=== PATIENT | female | born 1970 | race Caucasian/White ===

== ENCOUNTER 2016-06-07 09:12 | Outpatient (CLI) | payer MEDICARE, OTHER ==
[2015-11-24 15:24] VITALS: BP 149/106
== END 2016-06-07 09:14 ==
LOC: POD 09:12
PROVIDERS: ATTEND Podiatrist Public Medicine
DX: L84 Corns and callosities (principal); M79.671 Pain in right foot; M79.672 Pain in left foot
CPT/HCPCS: G0463

== ENCOUNTER 2016-07-05 12:22 | Outpatient (CLI) | payer MEDICARE, OTHER ==
[2015-11-24 15:24] VITALS: BP 149/106
[2016-07-05 12:38] LABS: BASOPHILS % 0.3 (0.0-1.5); EOSINOPHILS % 1.2 % (0.0-6.8); LYMPHOCYTES # 2.8 # k/uL (0.6-4.0); MEAN CORPUSCULAR HEMOGLOBIN 31.3 pg (28.0-34.0); MONOCYTES # 0.6 # k/uL (0.0-0.9); MONOCYTES % 4.7 % (0.0-11.0); NEUTROPHILS # 8.9 # k/uL (1.4-7.7)
[2016-07-05 13:05] LABS: eGFR (African) > 60; eGFR (Non-African) > 60
== END 2016-07-05 12:23 ==
LOC: LAB 12:22
PROVIDERS: ATTEND Physician Assistant
DX: R42 Dizziness and giddiness (principal); R53.82 Chronic fatigue, unspecified
CPT/HCPCS: 36415; 80053; 85025

== ENCOUNTER 2016-11-02 12:39 | Emergency (ER) | payer MEDICARE, OTHER ==
[2016-11-02 14:50] VITALS: BP 134/83
--- NOTE | 2016-11-02 15:26 | ED Physician Documentation ---
Hip Injury/Pain - HISTORIAN Historian: patient, paramedics - HPI Stated Complaint: right hip pain Chief Complaint: Hip Pain Additional Information: standing in kitchen severe exab rt hip pain-near fell. pain recent using aspercream takes tylenol- pt concerned fracture-sig obesity Onset: days ago (1-2 weeks light pain suddenly worse) Where: home Severity: moderate Duration: worse, persistent since Context: fall (near). denies: lost balance Symptoms Prior to Fall: other (progressive rt hip pain) Other Injuries: denies: loss of consciousness Subsequent Symptoms: weakness. denies: sensory loss, motor loss, numbness - ROS CONST: no problems RESP: denies: shortness of breath, cough non-productive GI/: none EYES/ENT: none MS/SKIN/LYMPH: denies: neck pain, ankle swelling NEURO/PSYCH: anxiety, depression. denies: confusion - PAST HX Cardiac Disease: other PE Risk Factors: hypertension Allergies/Adverse Reactions: Allergies Allergy/AdvReac Type Severity Reaction Status Date / Time No Known Allergies Allergy Verified 11/02/16 12:55 Home Medications: Ambulatory Orders Medication Instructions Recorded Ziprasidone HCl [Geodon] 80 mg PO BID av 12/25/14 Trazodone HCl [Desyrel] 100 mg PO HS u2 01/11/15 Aripiprazole [Abilify] 5 mg PO DAILY u2 01/14/16 - SOCIAL HX Smoking History: non-smoker Alcohol Use: none Drug Use: none - FAMILY HX Family History: No - VITAL SIGNS Vital Signs: Vital Signs Temp Pulse Resp BP Pulse Ox 98.0 F 102 H 20 134/83 98 11/02/16 12:40 11/02/16 12:40 11/02/16 12:40 11/02/16 12:40 11/02/16 12:40 - REVIEWED ASSESSMENTS Nursing Assessment Reviewed: Yes Vitals Reviewed: Yes ED Results Lab/Radiology - Orders Orders: ED Orders Category Date Time Status CT PELVIS W/O CONTRAST Routine Exams 11/02/[address] PELVIS W/O CONTRAST Stat Exams 11/02/16 Ordered Hip Injury/Pain Physical Exam - EXAM General Appearance: moderate distress Extremities: no deformity of knee, external rotation of leg (? slight). No: non -tender (sig tenderness over acetabulum rt hip), shortening of leg EENT: eye inspection normal Neck: nml inspection Respiratory: chest non-tender, breath sounds nml CVS: reg rate & rhythm, heart sounds normal Abdomen: non-tender (obese) Back: CVA tenderness (batsheva lumbar) Skin: warm/dry, normal color. No: cyanosis, diaphoresis, jaundice Neuro/Psych: oriented x3, mood/affect nml. No: sensory loss, depressed mood Discharge Clincal Impression: djd acetabulum - low back Referrals: Deepak Mcclure MD [Primary Care Provider] - 2 Days Home Medications: Ambulatory Orders Ziprasidone HCl [Geodon] 80 mg PO BID av 12/25/14 Trazodone HCl [Desyrel] 100 mg PO HS u2 01/11/15 Aripiprazole [Abilify] 5 mg PO DAILY u2 01/14/16 Comments: home tylenol-cant take ibu- hmp use cane or crutch - see pcp soon Condition: Good Disposition: 01 HOME, SELF-CARE Decision to Admit: NO Decision Time: 15:25
--- NOTE | 2016-11-02 15:50 | Diagnostic Imaging Report ---
NATE MCKEE [facility] [address] [facility] [address] [place], [place]. [address] Report Submission Date: Nov 02, 2016 2:17:12 PM CDT Patient Study Name: HAVEN PITTMAN Date: Nov 02, 2016 1:40:55 PM CDT Modality Type: CT\SR Gender: F Description: CT PELVIS W/O CONTRAST : 66 Institution: [facility] Physician: NATE MCKEE Examination: CT pelvis/hips History: Hip discomfort Comparison exam: Plain film dated 13 March 2016 Technique: Axial imaging with sagittal coronal reconstruction Findings: Osseous cortical margins without evidence for fracture. Minimal superior acetabular spurring bilaterally. Femoral head, neck, and intratrochanteric regions are within normal limits. Joint space preserved. Superior and inferior pubic rami, pubic symphysis, and iliac wings are within normal limits. Sacroiliac joints without fusion or fracture. Lower lumbar degenerative changes. No gross soft tissue abnormality given technique. Impression: Mild acetabular spurring. No acute osseous process. Lower lumbar degenerative changes. Electronically signed on Nov 02, 2016 2:17:12 PM CDT by: Logan BANEGAS
== END 2016-11-02 15:36 | disposition home or self-care (01) ==
LOC: ED 12:39
DX: M16.11 Unilateral primary osteoarthritis, right hip (principal)
CPT/HCPCS: 72192; 99283

== ENCOUNTER 2016-11-08 11:01 | Outpatient (CLI) | payer MEDICARE, OTHER | END 2016-11-08 11:02 | LOC: POD 11:01 | PROVIDERS: ATTEND Podiatrist Public Medicine | DX: L84 Corns and callosities (principal); L60.0 Ingrowing nail; M79.671 Pain in right foot; M79.672 Pain in left foot | CPT/HCPCS: G0463 ==

== ENCOUNTER 2017-02-07 10:15 | Outpatient (CLI) | payer MEDICARE, OTHER | END 2017-02-07 10:16 | LOC: POD 10:15 | PROVIDERS: ATTEND Podiatrist Public Medicine | DX: L84 Corns and callosities (principal); L60.0 Ingrowing nail; M79.671 Pain in right foot; M79.672 Pain in left foot | CPT/HCPCS: G0463 ==

== ENCOUNTER 2017-05-09 09:35 | Outpatient (CLI) | payer MEDICARE, OTHER | END 2017-05-09 11:15 | LOC: POD 09:35 | PROVIDERS: ATTEND Podiatrist Public Medicine | DX: L84 Corns and callosities (principal); L60.0 Ingrowing nail; M79.671 Pain in right foot; M79.672 Pain in left foot | CPT/HCPCS: G0463 ==

== ENCOUNTER 2017-08-08 09:11 | Outpatient (CLI) | payer MEDICARE, OTHER | END 2017-08-08 09:51 | LOC: POD 09:11 | PROVIDERS: ATTEND Podiatrist Public Medicine | DX: L84 Corns and callosities (principal); L60.0 Ingrowing nail; M79.671 Pain in right foot; M79.672 Pain in left foot; B35.1 Tinea unguium | CPT/HCPCS: 11721; G0463 ==

== ENCOUNTER 2017-09-10 16:14 | Outpatient (CLI) | payer MEDICARE, OTHER ==
[2017-09-10 17:07] LABS: MEAN CORPUSCULAR HEMOGLOBIN 29.7 pg (28.0-34.0); MEAN CORPUSCULAR VOLUME 85.3 fl (80.0-100.0)
[2017-09-10 17:08] LABS: APPEARANCE,URINE Clear (CLEAR); COLOR,URINE Yellow (YELLOW); OCCULT BLOOD,URINE 1+ (NEGATIVE); UROBILINOGEN URINE 0.2 Eu (0.2-1.0)
[2017-09-10 17:16] LABS: eGFR (African) > 60; eGFR (Non-African) > 60
== END 2017-09-10 16:15 ==
LOC: LAB 16:14
PROVIDERS: ATTEND Family Medicine
DX: R00.0 Tachycardia, unspecified (principal); N39.0 Urinary tract infection, site not specified; Z51.81 Encounter for therapeutic drug level monitoring
CPT/HCPCS: 36415; 80053; 81002; 85027

== ENCOUNTER 2017-11-07 08:36 | Outpatient (CLI) | payer MEDICARE, OTHER | END 2017-11-07 08:38 | LOC: POD 08:36 | PROVIDERS: ATTEND Podiatrist Public Medicine | DX: B35.1 Tinea unguium (principal); L84 Corns and callosities; L60.0 Ingrowing nail; M79.671 Pain in right foot; M79.672 Pain in left foot | CPT/HCPCS: G0463 ==

== ENCOUNTER 2017-11-13 16:42 | Outpatient (CLI) | payer MEDICARE, OTHER | END 2017-11-13 16:44 | LOC: LABRHC 16:42 | PROVIDERS: ATTEND Physician Assistant | DX: R35.0 Frequency of micturition (principal) | CPT/HCPCS: 87086 ==

== ENCOUNTER 2018-03-05 16:25 | Inpatient (IN) | payer MEDICARE, OTHER ==
[2018-03-05] MEDS ORDERED: 0.9 % SODIUM CHLORIDE 1,000 ML IV ONE (16:39)
[2018-03-05] MEDS ORDERED: ONDANSETRON HCL/PF 4 MG/ 2ML VIAL IVP ONE (16:41)
--- NOTE | 2018-03-05 16:57 | ED Physician Documentation ---
Nausea/Vomiting/Diarrhea - HPI Stated Complaint: N/V/D Chief Complaint: Abdominal Pain Additional Information: Patient presents to ED from clinic with sudden onset of vomiting. She reports watery diarrhea since this morning with 8-10 stools today. Patient has been us ing laxatives for the past 6 weeks twice daily for constipation. She was under the impression she was supposed to take laxatives twice daily but was only supposed to take them once daily. She started taking laxative once daily about a week ago. She did not take a laxative yesterday or today. She denies fever, chills or blood in stools/vomit. Onset: hours (12) Duration: waxing, waning Last known Well Code/Unknown Code: Known (yesterday) Timing: sudden onset Context: other (sick contact with diarrhea several days ago). denies: out of country travel Severity: mild Further Comments: no - Associated Symptoms Vomiting: mild Diarrhea: watery Abdominal Pain: aching, epigastric, RUQ - ROS CONST: none CVS/RESP: denies: chest pain, shortness of breath, cough GI/: none EYES/ENT: none MS/SKIN/LYMPH: denies: rash - PAST HX Past History: none Surgeries/Procedures: cholecystectomy Allergies/Adverse Reactions: Allergies Allergy/AdvReac Type Severity Reaction Status Date / Time diclofenac Allergy rash Verified 03/05/18 16:44 Home Medications: Ambulatory Orders Medication Instructions Recorded Ziprasidone HCl [Geodon] 80 mg PO BID av 12/25/14 Trazodone HCl [Desyrel] 100 mg PO HS u2 01/11/15 Aripiprazole [Abilify] 5 mg PO DAILY u2 01/14/16 - SOCIAL HX Smoking History: non-smoker Alcohol Use: none Drug Use: none - FAMILY HX Family History: none - VITAL SIGNS Vital Signs: Vital Signs Temp Pulse Resp BP Pulse Ox 95.2 F L 106 H 15 107/89 98 03/05/18 16:25 03/05/18 16:25 03/05/18 16:25 03/05/18 16:25 03/05/18 16:25 - REVIEWED ASSESSMENTS Nursing Assessment Reviewed: Yes Vitals Reviewed: Yes Progress - Results/Orders Results/Orders: CT abdomen and pelvis with contrast Date of study: March 05, 2018. CLINICAL HISTORY: EPIGASTRIC PAIN (Hx) / ITS.REASON n/v/d epigastric pain, elevated lipase TECHNIQUE: 5 mm contiguous axial images of the abdomen and pelvis with IV contrast. With; 91 CC OMNIPAQUE FINDINGS: No comparison studies are provided. The lung bases are clear. Abdomen: A right hepatic lobe hypodensity measures 1.3 cm and 20 Hounsfield units most consistent with a cyst. The intrahepatic bile ducts are slightly prominent most consistent with a post cholecystectomy effect. The pancreas and spleen are normal in appearance. Surgical clips are present in the gallbladder fossa consistent with prior cholecystectomy. The kidneys enhance appropriately and symmetrically. The aorta is normal in caliber. The small bowel is nondistended. There is no evidence of free air or free fluid. Pelvis: The colon is mildly dilated with air fluid levels throughout that may represent an enteritis or ileus. The appendix is not identified. Surgical clips are noted in the right pelvis. The distal ureters and bladder are normal. A right ovarian cyst or follicle measures a 2 cm. There is no evidence of free air or free fluid. The sigmoid colon and rectum are normal. The remaining pelvic structures are within normal limits and the bones of the pelvis are intact. There is multilevel degenerative lumbar spondylosis. IMPRESSION: Dilated colon with air-fluid levels that may represent an ileus or enteritis. Right hepatic lobe hypodensity that appears most consistent with a small cyst. 2 cm right ovarian cyst or follicle. Electronically signed on Mar 05, 2018 7:13:15 PM CDT by: Mahnaz Plaza - Progress Progress: 1804 Patient resting comfortably, feeling better after IV and Zofran. No stools yet. 183 Watery BM 1937 Elevated Lipase 511, CT abd/pelvis reveals enteritis vs ileus. UA shows infection. WBC >22,000. We will admit. ED Results Lab/Radiology - Lab Results Lab Results: Lab Results 03/05/18 03/05/18 03/05/18 17:00 17:00 17:00 WBC Comment 22.76 thou/uL H thou/uL (4.00-12.00) RBC 5.20 mil/uL mil/uL (3.90-5.20) Hemoglobin (Send Out) 14.8 g/dL g/dL (11.5-16.0) Hct (Send Out) 44.1 % % (34.5-46.5) MCV (Send Out) 84.8 fL fL (80.0-100.0) MCH 28.5 pg pg (28.0-34.0) MCHC (Send Out) 33.6 g/dL g/dL (30.0-36.0) RDW Coeff of Mia 12.6 % % (11.3-14.7) Plt Count 459 thou/uL H thou/uL (130-400) Absolute Lymphs (auto) 1.59 thou/uL thou/uL (0.60-4.00) Absolute Monos (auto) 0.84 thou/uL thou/uL (0.00-0.90) Absolute Basos (auto) 0.02 thou/uL thou/uL (0.00-0.50) Neutrophils % 88.9 % H % (39.0-79.0) Absolute Neutrophils 20.23 thou/uL H thou/uL (1.50-7.70) Lymphocytes 7.0 % L % (16.0-50.0) Monocytes 3.7 % % (0.0-11.0) Absolute Eosinophils 0.05 thou/uL thou/uL (0.00-0.60) Basophilia % 0.1 % % (0.0-1.5) Eosinophil Count 0.2 % % (0.0-6.8) Sodium Potassium Chloride Carbon Dioxide BUN Creatinine Estimated Creat Clear Est GFR ( Amer) Est GFR (Non-Af Amer) Glucose Calcium Total Bilirubin AST ALT Alkaline Phosphatase Total Protein Albumin Lipase 511 U/L H U/L (23-300) Urine Color Petra (YELLOW) Urine Appearance Cloudy H (CLEAR) Urine pH 5.5 (5.0 - 8.0) Ur Specific [place] 1.015 (1.010-1.030) Urine Protein 1+ mg/dL H mg/dL (NEGATIVE) Urine Ketones Negative mg/dL mg/dL (NEGATIVE) Urine Occult Blood 3+ H (NEGATIVE) Urine Nitrite Negative (NEGATIVE) Urine Bilirubin Negative (NEGATIVE) Urine Urobilinogen 0.2 Eu Eu (0.2-1.0) Ur Leukocyte Esterase 1+ H (NEGATIVE) Urine Glucose Negative mg/dL mg/dL (NEGATIVE) Urine HCG, Qual Negative (NEGATIVE) 03/05/18 17:00 WBC Comment RBC Hemoglobin (Send Out) Hct (Send Out) MCV (Send Out) MCH MCHC (Send Out) RDW Coeff of Mia Plt Count Absolute Lymphs (auto) Absolute Monos (auto) Absolute Basos (auto) Neutrophils % Absolute Neutrophils Lymphocytes Monocytes Absolute Eosinophils Basophilia % Eosinophil Count Sodium 130 mmol/L L mmol/L (136-145) Potassium 3.7 mmol/L mmol/L (3.5-5.1) Chloride 91 mmol/L L mmol/L (98-107) Carbon Dioxide 29 mmol/L mmol/L (22-30) BUN 13 mg/dL mg/dL (7-17) Creatinine 0.80 mg/dL mg/dL (0.52-1.04) Estimated Creat Clear 180 Est GFR ( Amer) > 60 (60 - ) Est GFR (Non-Af Amer) > 60 (60 - ) Glucose 120 mg/dL H mg/dL (74-106) Calcium 9.2 mg/dL mg/dL (8.4-10.2) Total Bilirubin 0.3 mg/dL mg/dL (0.2-1.3) AST 36 U/L U/L (15-46) ALT 47 U/L U/L (13-69) Alkaline Phosphatase 110 U/L U/L (38-126) Total Protein 7.9 g/dL g/dL (6.3-8.2) Albumin 4.2 g/dL g/dL (3.5-5.0) Lipase Urine Color Urine Appearance Urine pH Ur Specific [place] Urine Protein Urine Ketones Urine Occult Blood Urine Nitrite Urine Bilirubin Urine Urobilinogen Ur Leukocyte Esterase Urine Glucose Urine HCG, Qual - Orders Orders: ED Orders Category Date Time Status Place IV Lock 1T Care 03/05/18 16:[address] ABD & PELVIS W/ CON Stat Exams 03/05/18 Taken BLOOD CULTURE Stat Lab 03/05/18 Ordered CBC REF Stat Lab 03/05/18 17:00 Completed CMP Routine Lab 03/05/18 17:00 Completed LIPASE Stat Lab 03/05/18 17:00 Completed LIPID PROFILE Stat Lab 03/05/18 Ordered UA MACRO DIP ONLY Stat Lab 03/05/18 17:00 Completed URINE CULTURE Stat Lab 03/05/18 17:00 Received URINE HCG Stat Lab 03/05/18 17:00 Completed 0.9 % Sodium Chloride [Normal Saline] 1,000 ml Med 03/05/18 16:39 Discontinued IV Q2H Ondansetron HCl/Pf [Zofran 4 mg/2 ml] Med 03/05/18 16:41 Discontinued 4 mg IVP NOW ONE Piperacillin Sodium/Tazobactam [Zosyn] Med 03/06/18 19:31 Once 3.375 gm IV NOW ONE Nausea Physical Exam - EXAM General Appearance: no acute distress, alert EENT: SHARIF Neck: supple Respiratory: no resp distress, breath sounds normal CVS: reg rate & rhythm Abdomen: tenderness (soft, RUQ/epigastric tenderness) Back: No: CVA tenderness Skin: warm/dry, normal color Extremities: non-tender, no edema Neuro/Psych: oriented X3 Discharge Clincal Impression: Hyponatremia, Neutrophilic leukocytosis, Acute gastroenteritis, Adynamic ileus Acute pancreatitis without infection or necrosis Qualifiers: Pancreatitis type: unspecified pancreatitis type Qualified Code(s): K85.90 - Acute pancreatitis without necrosis or infection, unspecified Urinary tract infection Qualifiers: Urinary tract infection type: acute cystitis Hematuria presence: with hematuria Qualified Code(s): N30.01 - Acute cystitis with hematuria Referrals: Deepak Mcclure MD [Primary Care Provider] - 2 Days Condition: Stable Disposition: ADMITTED INPATIENT Decision to Admit: [id number] Date of Decison to Admit: 03/05/18 Decision Time: 19:23
[2018-03-05 18:04] LABS: APPEARANCE,URINE CLOUDY (CLEAR); COLOR,URINE AMBER (YELLOW); OCCULT BLOOD,URINE 3+ (NEGATIVE); PH URINE 5.5 (5.0 - 8.0); URINE HCG NEGATIVE (NEGATIVE); UROBILINOGEN URINE 0.2 Eu (0.2-1.0)
[2018-03-05 18:06] LABS: eGFR (Non-African) > 60
[2018-03-05 19:02] LABS: BASO % 0.1 % (0.0-1.5); EOS % 0.2 % (0.0-6.8); LYMPH ABS # 1.59 thou/uL (0.60-4.00); MCH. 28.5 pg (28.0-34.0); MCV 84.8 fL (80.0-100.0); MONOCYTE % 3.7 % (0.0-11.0); MONOCYTE ABS # 0.84 thou/uL (0.00-0.90); PLATELET COUNT 459 thou/uL (130-400)
[2018-03-05] MEDS ORDERED: HYDRALAZINE HCL 25 MG TABLET PO PRN (20:33)
--- NOTE | 2018-03-05 20:39 | History and Physical Report ---
History of Present Illnes - History of Present Illness Reason for Visit: nausea/vomiting/diarrhea History of Present Illness: Patient presents to ED from clinic with sudden onset of vomiting. She reports watery diarrhea since this morning with 8-10 stools today. Patient has been using laxatives for the past 6 weeks twice daily for constipation. She was under the impression she was supposed to take laxatives twice daily but was only supposed to take them once daily. She started taking laxative once daily about a week ago. She did not take a laxative yesterday or today. She denies fever, chills or blood in stools/vomit. ED evaluation revealed elevated WBC >22,000, Lipase 511, Na+ 130, UA showing infection. CT abd/pelvis revealed enteritis vs ileus. Blood cultures were drawn in the ED. One dose Zosyn given. Patient was admitted. - Past Medical History Cardiac: denies: AFIB, CAD, CHF, HTN, [place], Syncope, Hyperlipidemia, Mitral valve stenosis, Aortic stenosis, Valve insufficiency, Pulmonary hypertension, Other Pulmonary: denies: Asthma, Bronchitis, COPD, Pulmonary embolus, Previously intubated, Pneumonia, Sleep Apnea, Other Hepatobiliary: denies: Cirrhosis, Cholelithiasis, Hep A/B/C, Other Psych: Bipolar Musculoskeletal: denies: Chronic low back pain, Bursitis, Osteoarthritis, Other Rheumatologic: denies: Fibromyalgia, Gout, Rheumatoid arthritis, Vasculitis, Other Infectious Disease: denies: Bacterial vaginosis, [place], Gonorrhea, HIV, Human papilloma virus, Herpes simplex 1, Herpes simplex 2, Herpes zoster, Other Renal/: denies: Chronic renal insuff, Acute renal failure, Chronic renal failure, UTI, Hematuria, Other Endocrine: denies: Diabetes, Hyperthyroidism, Hypothyroidism, Hyperparathyroidism, Osteopenia, Osteoporosis, Other Dermatology: denies: Eczema, Cellulitis, Psoriasis, Melanoma, Basal cell, Squamous cell, Other - Past Surgical History Past Surgical History: Cholecystectomy - Past Social History Smoke: No Alcohol: None Drugs: None Lives: With Family Domestic Violence: Negative - Health Maintenance Health Maintenance: Cholesterol Pneumonia Vaccine: No Resuscitation Status: Resusciation Status Resuscitation Status Full Code Review of Systems - Review of Systems Constitutional: negative: Fever, Chills Eyes: negative: pain ENT: negative: Throat Pain, Throat Swelling Respiratory: negative: Cough, Shortness of Breath Cardiovascular: negative: Chest Pain Gastrointestinal: Nausea, Vomiting, Abdominal Pain, Diarrhea, Constipation. negative: Melena, Hematochezia Genitourinary: negative: Dysuria, Frequency Musculoskeletal: negative: Neck Pain Skin: negative: Rash Neurological: negative: Weakness, Seizures - Medications/Allergies Allergies/Adverse Reactions: Allergies Allergy/AdvReac Type Severity Reaction Status Date / Time diclofenac Allergy rash Verified 03/05/18 16:44 Current Inpatient Medications: Current Inpatient Medications Enoxaparin Sodium (Lovenox) 30 mg SQ QD [facility] Stop: 03/18/18 21:01 Fluticasone Propionate (Flonase Nasal [place]) spray NS DAILY [facility] Hydralazine HCl (Apresoline) 25 mg PO TID PRN PRN Reason: Blood Pressure Sodium Chloride (Normal Saline) 1,000 mls @ 100 mls/hr IV Q10H D[facility]IN Nystatin (Nystop) appl TP BID [facility] Stop: 03/15/18 20:59 Pantoprazole Sodium (Protonix) 40 mg PO BID [place]IN Piperacillin Sod/Tazobactam Sod (Zosyn) 3.375 gm IV NOW ONE Stop: 03/06/18 19:32 Piperacillin Sod/Tazobactam Sod (Zosyn) 3.375 gm IV Q6 [facility] Trazodone HCl (Desyrel) 50 mg PO HS [facility] Exam - Exam Vital Signs: Vital Signs (72 hours) 03/05/18 16:25 Temperature 95.2 F L Pulse Rate [ 106 H Left Pulse ox] Respiratory 15 Rate Blood Pressure 107/89 Blood Pressure 107/89 [Right Arm] O2 Sat by Pulse 98 Oximetry General: Alert, Oriented to Person, Oriented to Place, Oriented to Time, Coop erative, No acute distress HEENT: Atraumatic, PERRLA Neck: Normal Range of Motion Lungs: Clear to auscultation Cardiovascular: Regular rate Murmur: No: Systolic Murmur, Diastolic Murmur Abdomen: Soft, Other (epigastric/RUQ tenderness) Integumentary: Normal, [place], Warm Extremities: No clubbing, No edema Neurological: Normal gait, Normal speech Psych/Mental Status: Mental status NL - Laboratory Results Laboratory Results: Laboratory Results 03/05/18 03/05/18 03/05/18 17:00 17:00 17:00 WBC Comment 22.76 H RBC 5.20 Hemoglobin (Send Out) 14.8 Hct (Send Out) 44.1 MCV (Send Out) 84.8 MCH 28.5 MCHC (Send Out) 33.6 RDW Coeff of Mia 12.6 Plt Count 459 H Absolute Lymphs (auto) 1.59 Absolute Monos (auto) 0.84 Absolute Basos (auto) 0.02 Neutrophils % 88.9 H Absolute Neutrophils 20.23 H Lymphocytes 7.0 L Monocytes 3.7 Absolute Eosinophils 0.05 Basophilia % 0.1 Eosinophil Count 0.2 Sodium 130 L Potassium 3.7 Chloride 91 L Carbon Dioxide 29 BUN 13 Creatinine 0.80 Estimated Creat Clear 180 Est GFR ( Amer) > 60 Est GFR (Non-Af Amer) > 60 Glucose 120 H Calcium 9.2 Total Bilirubin 0.3 AST 36 ALT 47 Alkaline Phosphatase 110 Total Protein 7.9 Albumin 4.2 Lipase 511 H Urine Color Urine Appearance Urine pH Ur Specific [place] Urine Protein Urine Ketones Urine Occult Blood Urine Nitrite Urine Bilirubin Urine Urobilinogen Ur Leukocyte Esterase Urine Glucose Urine HCG, Qual 03/05/18 17:00 WBC Comment RBC Hemoglobin (Send Out) Hct (Send Out) MCV (Send Out) MCH MCHC (Send Out) RDW Coeff of Mia Plt Count Absolute Lymphs (auto) Absolute Monos (auto) Absolute Basos (auto) Neutrophils % Absolute Neutrophils Lymphocytes Monocytes Absolute Eosinophils Basophilia % Eosinophil Count Sodium Potassium Chloride Carbon Dioxide BUN Creatinine Estimated Creat Clear Est GFR ( Amer) Est GFR (Non-Af Amer) Glucose Calcium Total Bilirubin AST ALT Alkaline Phosphatase Total Protein Albumin Lipase Urine Color Petra Urine Appearance Cloudy H Urine pH 5.5 Ur Specific [place] 1.015 Urine Protein 1+ H Urine Ketones Negative Urine Occult Blood 3+ H Urine Nitrite Negative Urine Bilirubin Negative Urine Urobilinogen 0.2 Ur Leukocyte Esterase 1+ H Urine Glucose Negative Urine HCG, Qual Negative Assessment/Plan - Assessment/Plan (1) Acute gastroenteritis Status: Acute Current Visit: Yes Plan: Start Zosyn q 6 hours (2) Acute pancreatitis without infection or necrosis Status: Acute Current Visit: Yes Qualifiers: Pancreatitis type: unspecified pancreatitis type Qualified Code(s): K85.90 - Acute pancreatitis without necrosis or infection, unspecified Plan: Check lipid panel, triglycerides Hold Ablifiy as it may cause pancreatitis NPO with ice chips Protonix IV Pain control Hold blood pressure meds for soft blood pressure Add Hydralazine PRN for blood pressure >160 systolic (3) Adynamic ileus Status: Acute Current Visit: Yes Plan: NPO with ice chips Repeat KUB in AM (4) Hyponatremia Status: Acute Current Visit: Yes Plan: Normal saline at 100ml/hr Monitor Na+ (5) Neutrophilic leukocytosis Status: Acute Current Visit: Yes Plan: Zosyn Monitor WBC count (6) Urinary tract infection Status: Acute Current Visit: Yes Qualifiers: Urinary tract infection type: acute cystitis Hematuria presence: with hematuria Qualified Code(s): N30.01 - Acute cystitis with hematuria Plan: Zosyn q 6 hours. Watch urine/blood cultures. VTE Assessment - RISK FACTOR SCORE VTE RISK FACTOR SCORES: AGE 40-60 YEARS, OBESITY - RISK VTE HIGH RISK: SCORE OF 3-4 (RISK PROXIMAL DVT 4-8%) PROPHYLAXIS NEEDED (lovenox)
[2018-03-05] MEDS ORDERED: PANTOPRAZOLE SODIUM 40 MG TABLET PO SCH (21:00)
[2018-03-05] MEDS ORDERED: ONDANSETRON HCL/PF 4 MG/ 2ML VIAL IVP PRN (21:01)
[2018-03-05] MEDS ORDERED: 0.9 % SODIUM CHLORIDE 100 ML IV ONE (22:24)
[2018-03-05] MEDS: traZODone HCL 50 MG TABLET PO SCH (23:03)
[2018-03-05] MEDS: ENOXAPARIN SODIUM 30 MG/0.3 ML DISP.SYRIN SQ SCH (23:03)
[2018-03-05] MEDS: 0.9 % SODIUM CHLORIDE 1,000 ML IV SCH (23:04)
[2018-03-05] MEDS: PIPERACILLIN SODIUM/TAZOBACTAM 3.375 GM VIAL IV SCH (23:05)
[2018-03-05] MEDS: fentaNYL CITRATE/PF 100 MCG/ 2ML AMP IVP PRN (23:10)
[2018-03-06 01:37] VITALS: BMI 44.2
[2018-03-06] MEDS: fentaNYL CITRATE/PF 100 MCG/ 2ML AMP IVP PRN ×2 (04:08→13:55)
[2018-03-06] MEDS: PIPERACILLIN SODIUM/TAZOBACTAM 3.375 GM VIAL IV SCH ×3 (05:45→17:13)
--- NOTE | 2018-03-06 06:43 | Diagnostic Imaging Report ---
MAGDALENA MONSON [facility] [address] [facility] [address] [place], [place]. [address] Report Submission Date: Mar 05, 2018 7:13:15 PM CDT Patient Study Name: HAVEN PITTMAN Date: Mar 05, 2018 6:33:35 PM CDT Modality Type: CT\SR Gender: F Description: CT ABD PELVIS W/ CON : 66 Institution: [facility] Physician: MAGDALENA MONSON CT abdomen and pelvis with contrast Date of study: March 05, 2018. CLINICAL HISTORY: EPIGASTRIC PAIN (Hx) / ITS.REASON n/v/d epigastric pain, elevated lipase TECHNIQUE: 5 mm contiguous axial images of the abdomen and pelvis with IV contrast. With; 91 CC OMNIPAQUE FINDINGS: No comparison studies are provided. The lung bases are clear. Abdomen: A right hepatic lobe hypodensity measures 1.3 cm and 20 Hounsfield units most consistent with a cyst. The intrahepatic bile ducts are slightly prominent most consistent with a post cholecystectomy effect. The pancreas and spleen are normal in appearance. Surgical clips are present in the gallbladder fossa consistent with prior cholecystectomy. The kidneys enhance appropriately and symmetrically. The aorta is normal in caliber. The small bowel is nondistended. There is no evidence of free air or free fluid. Pelvis: The colon is mildly dilated with air fluid levels throughout that may represent an enteritis or ileus. The appendix is not identified. Surgical clips are noted in the right pelvis. The distal ureters and bladder are normal. A right ovarian cyst or follicle measures a 2 cm. There is no evidence of free air or free fluid. The sigmoid colon and rectum are normal. The remaining pelvic structures are within normal limits and the bones of the pelvis are intact. There is multilevel degenerative lumbar spondylosis. IMPRESSION: Dilated colon with air-fluid levels that may represent an ileus or enteritis. Right hepatic lobe hypodensity that appears most consistent with a small cyst. 2 cm right ovarian cyst or follicle. Electronically signed on Mar 05, 2018 7:13:15 PM CDT by: Mahnaz BANEGAS
[2018-03-06 07:52] LABS: eGFR (Non-African) > 60
[2018-03-06 08:34] LABS: BASO % 0.2 % (0.0-1.5); EOS % 1.5 % (0.0-6.8); LYMPH ABS # 1.59 thou/uL (0.60-4.00); MCH. 28.6 pg (28.0-34.0); MCV 84.4 fL (80.0-100.0); MONOCYTE % 6.4 % (0.0-11.0); MONOCYTE ABS # 0.66 thou/uL (0.00-0.90); PLATELET COUNT 353 thou/uL (130-400)
[2018-03-06] MEDS: FLUTICASONE PROPIONATE 120 SPRAY/16 GR BOTTLE NS SCH (10:31)
[2018-03-06] MEDS: PANTOPRAZOLE SODIUM 40 MG in 0.9 % SODIUM CHLORIDE 50 ML IV SCH (10:39)
[2018-03-06] MEDS: 0.9 % SODIUM CHLORIDE 1,000 ML IV SCH (11:00)
[2018-03-06] MEDS: NYSTATIN POWDER BOTTLE TP SCH ×3 (11:01→21:13)
[2018-03-06] MEDS: LORazepam 0.5 MG TABLET PO SCH ×2 (11:55→17:13)
--- NOTE | 2018-03-06 18:02 | Inpatient Progress Note ---
Subjective - Required Recertification Statement I anticipate X number of days because-include discharge plan: 1 - Review of Systems Events since last encounter: Tammie is feeling much better. Her WBC and Lipase have both normalized, and I am about to start feeding her clear liquids. She is still a little anxious, and she feels like she has something in her left eye. General: Denies: Chills, Night Sweats HEENT: Denies: Head Aches Pulmonary: Denies: Dyspnea, Cough Cardiovascular: Denies: Chest Pain Gastrointestinal: Abdominal Pain (resolved since 12:00). Denies: Nausea, Vomiting Genitourinary: Denies: Dysuria, Frequency Musculoskeletal: Denies: Neck Pain, Shoulder Pain Neurological: Denies: Weakness, Numbness, Incoordination Objective - Exam Vitals and I&O: Vital Signs Temp 98.6 F 03/06/18 14:00 Pulse 103 H 03/06/18 17:00 Resp 18 03/06/18 17:00 BP 138/79 03/06/18 14:00 Pulse Ox 94 03/06/18 14:00 Intake & Output 03/05/18 03/06/18 03/06/18 23:59 11:59 23:59 Intake Total 200 1243 921 Balance 200 1243 921 Weight 113.398 kg 113.398 kg Intake: IV 200 1223 471 Right Antecubital 200 1223 471 Oral 20 450 Other: Voiding Method Toilet Toilet Toilet # Voids 2 3 5 # Bowel Movements 4 1 3 General: Alert, Oriented to Person, Oriented to Place, Oriented to Time, Cooperative, No acute distress HEENT: Atraumatic, PERRLA, EOMI Neck: Supple, No JVD Lungs: Clear to auscultation, Normal air movement Cardiovascular: Regular rate, Normal S1, Normal S2 Abdomen: Normal bowel sounds, Soft, No tenderness Extremities: No clubbing, No cyanosis Skin: Normal, [place], Warm Neurological: Normal gait, Normal speech Psych/Mental Status: Mental status NL - Results Results: Laboratory Results WBC Comment 10.39 thou/uL (4.00-12.00) 03/06/18 06:15 RBC 4.48 mil/uL (3.90-5.20) 03/06/18 06:15 Hemoglobin (Send Out) 12.8 g/dL (11.5-16.0) 03/06/18 06:15 Hct (Send Out) 37.8 % (34.5-46.5) 03/06/18 06:15 MCV (Send Out) 84.4 fL (80.0-100.0) 03/06/18 06:15 MCH 28.6 pg (28.0-34.0) 03/06/18 06:15 MCHC (Send Out) 33.9 g/dL (30.0-36.0) 03/06/18 06:15 RDW Coeff of Mia 12.8 % (11.3-14.7) 03/06/18 06:15 Plt Count 353 thou/uL (130-400) 03/06/18 06:15 Absolute Lymphs (auto) 1.59 thou/uL (0.60-4.00) 03/06/18 06:15 Absolute Monos (auto) 0.66 thou/uL (0.00-0.90) 03/06/18 06:15 Absolute Basos (auto) 0.02 thou/uL (0.00-0.50) 03/06/18 06:15 Neutrophils % 76.6 % (39.0-79.0) 03/06/18 06:15 Absolute Neutrophils 7.96 thou/uL (1.50-7.70) H 03/06/18 06:15 Lymphocytes 15.3 % (16.0-50.0) L 03/06/18 06:15 Monocytes 6.4 % (0.0-11.0) 03/06/18 06:15 Absolute Eosinophils 0.16 thou/uL (0.00-0.60) 03/06/18 06:15 Basophilia % 0.2 % (0.0-1.5) 03/06/18 06:15 Eosinophil Count 1.5 % (0.0-6.8) 03/06/18 06:15 Sodium 133 mmol/L (136-145) L 03/06/18 06:15 Potassium 3.0 mmol/L (3.5-5.1) L 03/06/18 06:15 Chloride 98 mmol/L (98-107) 03/06/18 06:15 Carbon Dioxide 27 mmol/L (22-30) 03/06/18 06:15 BUN 10 mg/dL (7-17) 03/06/18 06:15 Creatinine 0.70 mg/dL (0.52-1.04) 03/06/18 06:15 Estimated Creat Clear 202 03/06/18 06:15 Est GFR ( Amer) > 60 (60-) 03/06/18 06:15 Est GFR (Non-Af Amer) > 60 (60-) 03/06/18 06:15 Glucose 98 mg/dL (74-106) 03/06/18 06:15 Calcium 8.0 mg/dL (8.4-10.2) L 03/06/18 06:15 Total Bilirubin 0.2 mg/dL (0.2-1.3) 03/06/18 06:15 AST 21 U/L (15-46) 03/06/18 06:15 ALT 49 U/L (13-69) 03/06/18 06:15 Alkaline Phosphatase 97 U/L (38-126) 03/06/18 06:15 Total Protein 6.7 g/dL (6.3-8.2) 03/06/18 06:15 Albumin 3.5 g/dL (3.5-5.0) 03/06/18 06:15 Triglycerides 191 mg/dL (<150) H 03/05/18 19:33 Cholesterol 159 mg/dL (<200) 03/05/18 19:33 LDL Cholesterol, Calc 80 mg/dL (<130) 03/05/18 19:33 HDL Cholesterol 41 mg/dL (40-59) 03/05/18 19:33 LDL/HDL Ratio 1.95 (3.22) 03/05/18 19:33 Cholesterol/HDL Ratio 3.88 (4.40) 03/05/18 19:33 Lipid Phenotype 03/05/18 19:33 Lipase 102 U/L (23-300) 03/06/18 06:15 Urine Color Petra (YELLOW) 03/05/18 17:00 Urine Appearance Cloudy (CLEAR) H 03/05/18 17:00 Urine pH 5.5 (5.0 - 8.0) 03/05/18 17:00 Ur Specific [place] 1.015 (1.010-1.030) 03/05/18 17:00 Urine Protein 1+ mg/dL (NEGATIVE) H 03/05/18 17:00 Urine Ketones Negative mg/dL (NEGATIVE) 03/05/18 17:00 Urine Occult Blood 3+ (NEGATIVE) H 03/05/18 17:00 Urine Nitrite Negative (NEGATIVE) 03/05/18 17:00 Urine Bilirubin Negative (NEGATIVE) 03/05/18 17:00 Urine Urobilinogen 0.2 Eu (0.2-1.0) 03/05/18 17:00 Ur Leukocyte Esterase 1+ (NEGATIVE) H 03/05/18 17:00 Urine Glucose Negative mg/dL (NEGATIVE) 03/05/18 17:00 Urine HCG, Qual Negative (NEGATIVE) 03/05/18 17:00 Assessment/Plan - Assessment/Plan (1) Acute gastroenteritis Status: Acute Current Visit: Yes Assessment: Resolving (2) Acute pancreatitis without infection or necrosis Status: Acute Current Visit: Yes Qualifiers: Pancreatitis type: unspecified pancreatitis type Qualified Code(s): K85.90 - Acute pancreatitis without necrosis or infection, unspecified Assessment: With normalization of lipase Plan: Start clear liquids (3) Adynamic ileus Status: Acute Current Visit: Yes (4) Neutrophilic leukocytosis Status: Acute Current Visit: Yes Assessment: Improved Plan: hope for d/c to home tomorrow
--- NOTE | 2018-03-06 18:10 | Diagnostic Imaging Report ---
[facility]G [facility] [address] [facility].[address] [address] Report Submission Date: Mar 06, 2018 8:04:29 AM CDT Patient Study Name: HAVEN PITTMAN Date: Mar 06, 2018 6:49:30 AM CDT Modality Type: DX Gender: F Description: ABDOMEN : 66 Institution: [facility] Physician: [facility] /MED SURG Examination: Obstruction series History: KUB, REEVALUATE ILEUS, FOLLOW UP FROM 03/05/18 (Hx) Comparison exam: CT dated 05 March 2018 Findings: 4 views obtained of the abdomen. No abnormal dilation of the small bowel. Air throughout the large bowel. No suspicious calcification projecting over the renal fossa or the lower pelvic region. Osseous structures are appropriate for age. Surgical clips right upper quadrant. Impression: Air filled loops of large and small bowel. No obstruction. No suspicious calcifications by plain film sensitivity. Electronically signed on Mar 06, 2018 8:04:29 AM CDT by: Logan BANEGAS
[2018-03-06] MEDS ORDERED: HYDROXYZINE HCL 25 MG TABLET PO PRN (18:34)
[2018-03-06] MEDS ORDERED: PIPERACILLIN SODIUM/TAZOBACTAM 3.375 GM VIAL IV ONE (19:31)
[2018-03-06] MEDS: ENOXAPARIN SODIUM 30 MG/0.3 ML DISP.SYRIN SQ SCH (21:12)
[2018-03-06] MEDS: traZODone HCL 50 MG TABLET PO SCH (21:12)
[2018-03-06] MEDS: HYPROMELLOSE OPTH DROPS OP SCH (21:13)
[2018-03-06] MEDS: PATIENT OWN MED 1 EACH EACH PO SCH (21:14)
[2018-03-06] MEDS: buPROPion 150 MG TABLET.ER PO SCH (21:19)
[2018-03-07] MEDS: LORazepam 0.5 MG TABLET PO SCH ×3 (00:28→12:38)
[2018-03-07] MEDS: 0.9 % SODIUM CHLORIDE 1,000 ML IV SCH ×4 (00:29→13:47)
[2018-03-07] MEDS ORDERED: 0.9 % SODIUM CHLORIDE 100 ML IV ONE (00:32)
[2018-03-07] MEDS: PIPERACILLIN SODIUM/TAZOBACTAM 3.375 GM VIAL IV SCH ×3 (00:58→12:38)
[2018-03-07] MEDS ORDERED: ARIPIPRAZOLE 2 MG TABLET PO SCH (09:00)
[2018-03-07] MEDS: FLUTICASONE PROPIONATE 120 SPRAY/16 GR BOTTLE NS SCH (09:48)
[2018-03-07] MEDS: NYSTATIN POWDER BOTTLE TP SCH (09:49)
[2018-03-07] MEDS: HYPROMELLOSE OPTH DROPS OP SCH ×2 (09:49→12:39)
[2018-03-07] MEDS: PANTOPRAZOLE SODIUM 40 MG in 0.9 % SODIUM CHLORIDE 50 ML IV SCH (09:49)
[2018-03-07] MEDS: buPROPion 150 MG TABLET.ER PO SCH (09:50)
[2018-03-07] MEDS: PATIENT OWN MED 1 EACH EACH PO SCH (09:50)
[2018-03-07 13:32] VITALS: BP 138/72
[2018-03-07 16:41] LABS: BASO % 0.2 % (0.0-1.5); EOS % 7.5 % (0.0-6.8); LYMPH ABS # 1.37 thou/uL (0.60-4.00); MCH. 27.9 pg (28.0-34.0); MCV 85.1 fL (80.0-100.0); MONOCYTE % 5.3 % (0.0-11.0); MONOCYTE ABS # 0.38 thou/uL (0.00-0.90); PLATELET COUNT 343 thou/uL (130-400)
--- NOTE | 2018-03-08 10:01 | Discharge Summary ---
DATE OF ADMISSION: March 05, 2018 DATE OF DISCHARGE: March 07, 2018 DIAGNOSES ON THIS HOSPITALIZATION: 1. Gastroenteritis. 2. Pancreatitis. 3. Ileus. 4. Elevated white count. SUMMARIZATION OF ADMISSION HISTORY AND PHYSICAL: This is a 48-year-old female well known to myself who presented to the emergency room on the day of admission with a complaint of having had some mid-epigastric pain which had been present for the previous day or so. She had quite a bit of vomiting with this and some watery diarrhea with about 8 to 10 loose stools. Her white count was noted to be 22,000. Lipase was elevated at 511. Although she had some pyuria, cultures showed mixed urogenital bernie. HOSPITAL COURSE: She was admitted. She was made NPO. Antibiotics had been arbitrarily started in the emergency department and those were discontinued on discharge. By hospital day 2, her lipase had come down from 511 to 73. She was discharged to home with resumption of all of her previous medications and a regular diet. DISCHARGE INSTRUCTIONS: Follow up in the office in 1 week. CONDITION ON DISCHARGE: She was discharged to home in improved condition. BASSAM
== END 2018-03-07 14:15 | disposition home or self-care (01) | DRG 391 ==
LOC: ED 16:25 → SOUTH 20:17
PROVIDERS: ADMIT Family Medicine; ATTEND Family Medicine
DX: K52.9 Noninfective gastroenteritis and colitis, unspecified (principal); K85.90 Acute pancreatitis without necrosis or infection, unspecified; N30.01 Acute cystitis with hematuria; K56.0 Paralytic ileus; E87.1 Hypo-osmolality and hyponatremia; D72.828 Other elevated white blood cell count
CPT/HCPCS: 74018; 74177; 80053; 80061; 81002; 81025; 83690; 85025; 87040; 87086; 97110; 97161; J1650; J2405; J2543; J3010; J7030; 96365; 96366; 96375; 99222; 99232; 99238; S1016

== ENCOUNTER 2018-03-05 17:35 | Outpatient (CLI) | payer MEDICARE, OTHER ==
[2018-03-05 16:40] VITALS: BP 107/89
== END 2018-03-05 17:36 ==
LOC: LABRHC 17:35
PROVIDERS: ATTEND Family Medicine
DX: Z76.89 Persons encountering health services in other specified circumstances (principal)
CPT/HCPCS: 81002

== ENCOUNTER 2018-05-17 20:30 | Emergency (ER) | payer MEDICARE, OTHER ==
--- NOTE | 2018-05-17 20:35 | ED Physician Documentation ---
Chest Pain - HISTORIAN Historian: patient - HPI Stated Complaint: chest pain Chief Complaint: General Adult Onset: hours (1) Timing: other (on and off ) Duration: waxing, waning Last known Well Date: 05/17/18 Last Known Well Time: 20:00 Context: other (after eating x 2 today ) Severity: mild Quality: pressure Chest Pain Radiation: no radiation Chest Pain Signs/Symptoms: nausea (that started not related to the chest pain but she has been having nausea in am's after taking meds ). denies: vomiting, diaphoresis, dizziness, dyspnea, tachypnea, tachycardia, hypotension, palpitations Worsened By: deep breaths Relieved By: nothing Further Comments: yes (Pain on right side of chest . Increaed with deep breath and increased with palpation. She states the pain intially started this afternoon. she had fried chicken sandwich for lunch and fries. The pain subsided on its own until around 8 pm after having fried spam for dinner. She states she has hx of GERD and she also has anxiety . She has no injury recently. Denies any diaphrosis or n/v with the chest pain.She has had a cough x3 days no fever.) - ROS CONST: recent illness (cough ) MS/LYMPH: none GI/: nausea (with morning meds "for a while" ) NEURO/PSYCH: anxiety (history ) - PAST HX LA risk factors: hypertension Neuro deficit: none GI disease: GERD Immunizations: UTD Allergies/Adverse Reactions: Allergies Allergy/AdvReac Type Severity Reaction Status Date / Time diclofenac Allergy Throat Verified 05/17/18 21:20 Swelling Home Medications: Ambulatory Orders Medication Instructions Recorded Ziprasidone HCl [Geodon] 80 mg PO BID av 12/25/14 Trazodone HCl [Desyrel] 100 mg PO HS u2 01/11/15 Aripiprazole [Abilify] 10 mg PO D 05/17/18 - SOCIAL HX Smoking History: non-smoker Alcohol Use: none Drug Use: none - FAMILY HX Family HX: none - VITAL SIGNS Vital Signs: Vital Signs Temp Pulse Resp BP Pulse Ox 138/72 03/07/18 12:31 - REVIEWED ASSESSMENTS Nursing Assessment Reviewed: Yes Vitals Reviewed: Yes Progress - Progress Progress: 2145: denies any pain. Results and plan discussed and her and spouse are agreeable DG Chest Pain Physical Exam - EXAM General Appearance: no acute distress, alert EENT: eye inspection normal, no signs of dehydration Neck: nml inspection Respiratory: no resp. distress, chest non-tender, nml breath sounds, other (pain with palpation on right chest ) CVS: reg. rate & rhythm, no murmur, pulses equal Abdomen: soft, normal bowel sounds, no distension, non-tender Skin: warm/dry, normal color Extremities: non-tender, normal range of motion, no evidence of injury, no edema Neuro: oriented X3 Discharge Clincal Impression: Chronic GERD Chest pain Qualifiers: Chest pain type: unspecified Qualified Code(s): R07.9 - Chest pain, unspecified Referrals: Braden Kraus MD [Primary Care Provider] - 2 Days Additional Instructions: 1. Continue meds as prescribed 2. Follow up with PCP in 2 - 4 days 3. Decrease fatty or fried foods 4. Decrease caffeine 5. Return to ER for any further concerns Condition: Stable Disposition: 01 HOME, SELF-CARE Decision to Admit: NO Date of Decison to Admit: 05/17/18 Decision Time: 21:46
[2018-05-17] MEDS ORDERED: MAG HYDROX/ALUMINUM HYD/SIMETH 30 ML, Lidocaine 2%Visc 15ml 20 MG, PHENobarb/HYOSCY/ATR... PO ONE ×6 (21:01→21:07)
[2018-05-17] MEDS: LIDOCAINE HCL 2% VISC. ORAL 300MG/15ML UDC ONE (21:20)
[2018-05-17] MEDS: MAGNESIUM, ALUMINUM HYDROXIDE 30 ML UDC PO ONE (21:20)
[2018-05-17 21:34] LABS: MEAN CORPUSCULAR HEMOGLOBIN 27.8 pg (28.0-34.0)
[2018-05-17 21:35] LABS: BASOPHILS % 0.5 (0.0-1.5); EOSINOPHILS % 3.2 % (0.0-6.8); MONOCYTES % 6.2 % (0.0-11.0); NEUTROPHILS # 6.3 # k/uL (1.4-7.7)
[2018-05-17 21:36] LABS: eGFR (Non-African) > 60
[2018-05-17 22:09] VITALS: BP 131/84
--- NOTE | 2018-05-18 07:20 | Diagnostic Imaging Report ---
NAHUM BARNHART [facility] [address] [facility] [address] [place], [place]. [address] Report Submission Date: May 17, 2018 9:33:18 PM CREDIT COLLECTION SPECIALIST Patient Study Name: HAVEN PITTMAN Date: May 17, 2018 9:10:52 PM CREDIT COLLECTION SPECIALIST Modality Type: DX Gender: F Description: CHEST : 66 Institution: [facility] Physician: NAHUM BARNHART 2 views chest Clinical history: Chest pain Findings: The heart size is normal. The pulmonary vasculature is normal. No pleural effusion, pneumothorax or alveolar consolidation. Impression: Negative Electronically signed on May 17, 2018 9:33:18 PM CREDIT COLLECTION SPECIALIST by: Roberto BANEGAS
== END 2018-05-17 21:59 | disposition home or self-care (01) ==
LOC: ED 20:30
DX: K21.9 Gastro-esophageal reflux disease without esophagitis (principal); R07.9 Chest pain, unspecified
CPT/HCPCS: 36415; 71046; 80053; 84484; 85025; 93005; 99283; 99285; A9270; S1016

== ENCOUNTER 2018-06-03 09:26 | Day surgery (SDC) | payer MEDICARE, OTHER ==
[~2018-06-03 09:26] MED LIST: LACTATED RINGERS 1,000 ML IV.SOLN IV ONE; PROPOFOL 200 MG/20 ML VIAL IV ONE
--- NOTE | 2018-06-03 10:55 | GI Report ---
REFERRING PHYSICIAN: Dr. Deepak Mcclure [employer]ER: Dmitriy Gallagher MD PROCEDURE MEDICATION: Propofol as per anesthesia. INDICATIONS: This 48-year-old woman is referred for a screening colonoscopy. She does have a tendency towards constipation. She does take MiraLAX and Metamucil daily. She is on multiple medications including Abilify, Wellbutrin, Lorazepam, trazodone, and Geodon. Underlying, she has had pancreatitis, central obesity, anxiety, and schizoaffective disorder. On exam, she is 5 feet 2 inches and weighs 250 pounds and carries that weight centrally. Lungs have decreased breath sounds. Heart sounds are distant. PROCEDURE PERFORMED: Colonoscopy. PROCEDURE: An Olympus video colonoscope was advanced to the rectum. She does have some diverticula in the sigmoid colon. A very atonic redundant colon and took some maneuvering and nurse compression to finally reach the base of the cecum. The appendiceal orifice was identified. On slow withdrawal, the cecum, ascending colon, and transverse colon with no obvious intraluminal lesions noted but a very atonic redundant colon. The descending colon and sigmoid colon had scattered diverticula. Retroflexion of the rectum was normal. Patient tolerated the procedure well. FINDINGS: A very atonic redundant colon with diverticular disease. RECOMMENDATIONS: 1. Would increase fiber such as fruits and vegetables. MiraLAX is fine. 2. Would re-look at her colon in 10 years, sooner if clinically indicated. cc: Dr. Deepak BANEGAS
== END 2018-06-03 11:15 ==
LOC: OPSURG 09:26
PROVIDERS: ATTEND Internal Medicine Gastroenterology
DX: Z12.11 Encounter for screening for malignant neoplasm of colon (principal); K57.30 Diverticulosis of large intestine without perforation or abscess without bleeding; K59.8 Other specified functional intestinal disorders
CPT/HCPCS: G0121; J2704; J7120; S1016

== ENCOUNTER 2018-08-14 14:10 | Outpatient (CLI) | payer MEDICARE, OTHER ==
[2018-08-14 14:33] LABS: BASOPHILS % 0.8 (0.0-1.5); EOSINOPHILS % 2.6 % (0.0-6.8); MEAN CORPUSCULAR HEMOGLOBIN 29.2 pg (28.0-34.0); MONOCYTES % 4.8 % (0.0-11.0); NEUTROPHILS # 7.5 # k/uL (1.4-7.7)
[2018-08-14 14:46] LABS: eGFR (Non-African) > 60
== END 2018-08-14 14:12 ==
LOC: LAB 14:10
PROVIDERS: ATTEND Psychiatry & Neurology Psychiatry
DX: Z79.899 Other long term (current) drug therapy (principal)
CPT/HCPCS: 36415; 80053; 80061; 83036; 85025

== ENCOUNTER 2018-08-21 08:59 | Outpatient (CLI) | payer MEDICARE, OTHER ==
--- NOTE | 2018-08-21 20:29 | Diagnostic Imaging Report ---
GLENN JIMENES [facility] [address] [facility] [address] [address] Report Submission Date: Aug 21, 2018 9:47:19 AM CDT Patient Study Name: HAVEN PITTMAN Date: Aug 21, 2018 9:09:49 AM CDT Modality Type: US Gender: F Description: US THYROID SOFT TISS HEAD/NCK : 66 Institution: [facility] Physician: GLENN JIMENES Exam: Thyroid ultrasound. History: Palpable abnormalities both lobes. Real-time grayscale imaging of the thyroid gland is performed. No previous studies are available for comparison. The isthmus measures 3.7 mm in width. A 3.2 mm cyst just to the right of midline at the is best is noted. The right lobe measures 4.4 x 2.1 by 1.8 cm and is associated with a mixed echogenic nodule containing blood flow measuring 1.7 x 1.3 x 1.2 cm in greatest diameter. Left lobe appears to measure 3.1 by 0.9 by 1.4 cm in size. Is associated with a nearly isoechoic echogenic nodule measuring 1.7 x 1.2 x 1.0 cm in size. No surrounding masses or fluid collections are identified. Impression: Nodules present in both lobes and at the isthmus. Scintigraphic imaging and uptake measurement may be necessary to further evaluate. Electronically signed on Aug 21, 2018 9:47:19 AM CDT by: Venkatesh BANEGAS
== END 2018-08-21 09:00 ==
LOC: RAD 08:59
PROVIDERS: ATTEND Family Medicine
DX: E04.2 Nontoxic multinodular goiter (principal)
CPT/HCPCS: 76536

== ENCOUNTER 2018-09-05 15:46 | Outpatient (CLI) | payer MEDICARE, OTHER | END 2018-09-05 15:48 | LOC: LAB 15:46 | PROVIDERS: ATTEND Family Medicine | DX: E04.1 Nontoxic single thyroid nodule (principal) | CPT/HCPCS: 36415; 84439; 84443; 84481 ==

== ENCOUNTER 2019-01-02 09:47 | Outpatient (CLI) | payer MEDICARE, OTHER ==
[2019-01-02 10:46] LABS: BASOPHILS % 0.6 % (0.0-1.5); NEUTROPHILS # 5.5 # k/uL (1.4-7.7)
[2019-01-02 10:59] LABS: eGFR (Non-African) > 60
== END 2019-01-02 09:50 ==
LOC: RT 09:47
PROVIDERS: ATTEND Family Medicine
DX: R55 Syncope and collapse (principal)
CPT/HCPCS: 36415; 80053; 85025

== ENCOUNTER 2019-01-31 10:21 | Outpatient (CLI) | payer MEDICARE, OTHER | END 2019-01-31 10:30 | LOC: LABRHC 10:21 | PROVIDERS: ATTEND Nurse Practitioner Family | DX: L03.011 Cellulitis of right finger (principal) | CPT/HCPCS: 87070; 87186 ==

== ENCOUNTER 2019-03-27 11:08 | Outpatient (CLI) | payer MEDICARE, OTHER ==
[2019-03-27 11:39] LABS: COLOR,URINE YELLOW (YELLOW)
[2019-03-27 11:40] LABS: APPEARANCE,URINE CLEAR (CLEAR); OCCULT BLOOD,URINE TRACE-INTACT (NEGATIVE); UROBILINOGEN URINE 0.2 Eu (0.2-1.0)
[2019-03-27 11:42] LABS: BASOPHILS % 0.6 % (0.0-1.5); NEUTROPHILS # 7.8 # k/uL (1.4-7.7)
[2019-03-27 12:32] LABS: eGFR (Non-African) > 60
--- NOTE | 2019-03-27 14:27 | Diagnostic Imaging Report ---
PATIENT MR#: [id number] PATIENT PATIENT NAME: HAVEN PITTMAN DATE OF : 1970 REFERRING PHYSICIAN: Braden Kraus EXAM DATE: 03/27/2019 ACCESSION NUMBER: [id number] EXAM DESCRIPTION: ABD SERIES PA CHEST HISTORY: LOWER ABDOMINAL PAIN X 3 MONTHS COMPARISON: May 17, 2018. ABDOMINAL XRAY, 5 FRONTAL VIEWS WITH CHEST: Heart: No cardiomegaly. Lungs: No lobar infiltrate, pulmonary edema, pneumothorax or significant effusion. Bowel gas pattern: There is no free air beneath the diaphragms. No evidence of obstruction. Moderate fecal loading of the cecum. Right upper quadrant: Cholecystectomy clips. Calcifications: No findings to suggest nephrolithiasis by x-ray sensitivity. Skeleton: Intact. IMPRESSION: Moderate fecal loading of the cecum, without small bowel obstruction. Read by: Dr. Beau Bertrand Transcribed by: Beau Bertrand Transcribed Date: 03/27/2019 2:26:31 PM Electronically signed by: Dr. Beau Bertrand Date signed: 03/27/2019 2:26:44 PM
== END 2019-03-27 11:13 ==
LOC: LAB 11:08
PROVIDERS: ATTEND Family Medicine
DX: R10.30 Lower abdominal pain, unspecified (principal)
CPT/HCPCS: 36415; 74022; 80053; 81002; 85025

== ENCOUNTER 2019-05-07 14:04 | Outpatient (CLI) | payer MEDICARE, OTHER | END 2019-05-07 14:09 | LOC: LAB 14:04 | PROVIDERS: ATTEND Family Medicine | DX: E55.9 Vitamin D deficiency, unspecified (principal) | CPT/HCPCS: 36415; 82306 ==